=== PATIENT | female | born 1945 | race Caucasian/White ===

== ENCOUNTER → 2024-04-23 10:28 | Outpatient (REF) | payer MEDICARE, MEDICAID, SELFPAY | LOC: RAD 10:28 | PROVIDERS: ATTENDING PHYSICIAN Internal Medicine Endocrinology, Diabetes & Metabolism; FAMILY PHYSICIAN Internal Medicine | DX: D49.7 Neoplasm of unspecified behavior of endocrine glands and other parts of nervous system (principal) | CPT/HCPCS: 74170; Q9967 ==

== ENCOUNTER → 2024-05-22 09:24 | Outpatient (REF) | payer MEDICARE, MEDICAID, SELFPAY | LOC: HWRAD 09:24 | PROVIDERS: ATTENDING PHYSICIAN Internal Medicine Endocrinology, Diabetes & Metabolism; FAMILY PHYSICIAN Internal Medicine | DX: E04.2 Nontoxic multinodular goiter (principal) | CPT/HCPCS: 76536 ==